=== PATIENT | female | born 1995 | race Caucasian/White ===

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

== ENCOUNTER 2017-01-21 14:51 | Emergency (ER) | payer OTHER ==
[~2017-01-21] VITALS: Ht 157.5 cm; Wt 80.0 kg
[~2017-01-21 14:51] MED LIST changes: +FAMO-96 PO; +IBUP-1542 PO
[2017-01-21 14:55] VITALS: Ht 157.5 cm; Wt 80.0 kg
--- NOTE | 2017-01-21 16:34 | ERD ---
ER Documentation Chief Complaint Date/Time DATE: 01/21/17 TIME: 16:33 Chief Complaint left breast pain HPI This 21-year-old female presents to emergency department with left breast pain and DC around nipple days. Patient denies any blood coming from the nipple says the lesion is on the outside of her areola. Patient denies doing self breast exams, she denies family history of breast cancer Is not currently breast-feeding, she is not . She denies any trauma or injury ROS All systems reviewed and are negative except as per history of present illness. Medications Home Meds Active Scripts Mupirocin* (Bactroban*) 2% -22 Gram Oint...g., 1 APPLIC TOP BID for 7 Days, EA Prov:JAYCEE,LIZBETH 01/21/17 Doxycycline Hyclate* (Doxycycline Hyclate*) 100 Mg Tablet.dr, 100 MG PO BID for 10 Days, TAB Prov:JAYCEE,LIZBETH 01/21/17 Famotidine* (Pepcid*) 20 Mg Tablet, 20 MG PO BID for 4 Days, TAB Prov:REANNA REDMOND PA-C 11/30/16 Ibuprofen* (Motrin*) 600 Mg Tab, 600 MG PO Q6H Y for PAIN AND OR ELEVATED TEMP, #30 TAB Prov:REANNA REDMOND PA-C 11/30/16 Cephalexin* (Keflex*) 500 Mg Capsule, 500 MG PO QID for 5 Days, CAP Prov:PASILABANANDREWAR F 09/19/16 Mupirocin* (Bactroban*) 2% -22 Gram Oint...g., 1 APPLIC TOP BID for 7 Days, EA Prov:GEORGEILATEO SALCEDO F 09/19/16 Naproxen* (Naprosyn*) 500 Mg Tablet, 500 MG PO BID Y for PAIN AND/OR INFLAMMATION, #20 TAB Prov:ERNESTO BURROUGHS PA-C 06/03/16 Tramadol HCl (Tramadol HCl) 50 Mg Tablet, 50 MG PO Q4 Y for PAIN, #20 TAB Prov:ERNESTO BURROUGHS PA-C 06/03/16 Ibuprofen* (Motrin*) 400 Mg Tab, 400 MG PO Q8, #12 TAB Prov:PATY DELEON DO 10/23/15 Ondansetron Hcl* (Zofran* ODT) 4 mg -ODT Tab.disper, 4 MG PO Q6 Y for NAUSEA AND /OR VOMITING, #10 TAB Prov:EMILIE SWANSON I. CHILD CARE SPECIALIST 05/08/15 Meclizine Hcl* (Antivert*) 25 Mg Tablet, 25 MG PO Q6H Y for dizziness , #20 TAB Prov:EMILIE SWANSON I. CHILD CARE SPECIALIST 05/08/15 Reported Medications Aripiprazole* (Abilify*) 2 Mg Tablet, 1-2 MG PO PO Y for AGITATION 07/15/15 Sertraline Hcl* (Sertraline Hcl*) 50 Mg Tablet, 75 MG PO QAM 07/15/15 Hydroxyzine Hcl* (Atarax*) 50 Mg Tab, 50 MG PO QHS Y for INSOMNIA 07/15/15 Allergies Allergies: Coded Allergies: acetaminophen (Verified Allergy, Mild, 11/30/16) SWELLING dextromethorphan HBr (Verified Allergy, Mild, 11/30/16) SWELLING doxylamine (Verified Allergy, Mild, 11/30/16) SWELLING pseudoephedrine HCl (Verified Allergy, Mild, 11/30/16) SWELLING PMhx/Soc History of Surgery: Yes (RT FOOT ) Anesthesia Reaction: No Hx Neurological Disorder: No Hx Respiratory Disorders: No Hx Cardiac Disorders: No Hx Psychiatric Problems: Yes (anxiety/depression) Hx Miscellaneous Medical Probl: No Hx Alcohol Use: No Hx Substance Use: No Hx Tobacco Use: No Physical Exam Vitals Vital Signs Date Time Temp Pulse Resp B/P Pulse Ox O2 Delivery O2 Flow Rate FiO2 01/21/17 20:14 98.0 71 18 125/63 100 Room Air 01/21/17 14:55 98.1 67 18 121/59 99 Stable, triage notes reviewed Physical Exam Const: Well-nourished well-appearing well-hydrated 21-year-old female in no acute distress Head: Eyes: ENT: Neck: Resp: Nontender chest wall. Respirations even and unlabored. Breast exam: Breasts are symmetric, Areola dark, nipples everted. Left areole a presents with a 0.5 cm x 0.6 cm crusty scaly lesion at 1400 no blood or discharge noted. Breast exam negative for nodules or induration. Cardio: Abd: Soft, non tender, non distended. Skin: Back: Ext: Neur: Awake and alert Psych: Normal Mood and Affect Results 24 hrs Current Medications Medications (Trade) Dose Ordered Sig/Juan Route PRN Reason Start Time Stop Time Status Last Admin Dose Admin Doxycycline Hyclate (Vibramycin) 100 mg ONCE ONCE PO 01/21/17 17:00 01/21/17 17:01 Cancel Doxycycline Hyclate (Vibramycin) 100 mg ONCE ONCE PO 01/21/17 17:30 01/21/17 17:31 DC 01/21/17 17:22 Procedures/MDM This pleasant 21-year-old female presents to emergency department for breast pain. Patient reports lesion which is crusty on her left breast. Patient reports that it has been oozing fluid sticking to her bra and painful when she removes her clothing. Patient denies any history of breast trauma, denies any family history of breast cancer. Emergency room course today includes doxycycline started in the emergency room, ultrasound of left breast with radiologist's impression no sonographic evidence of malignancy in the left breast. No sonographic abnormality or findings to suggest source of patient's. BIRADS 1; negative. Follow-up any palpable clinical abnormality as clinically warranted. Otherwise the patient can begin routine annual screening mammograms at age 42. Plan to discharge patient home with a 10 day course of doxycycline, topical Bactroban applied twice daily 7 days. Instructed to follow-up with OB/ RADIAGRAPH OPERATOR a resource list will be provided, return to emergency department for worsening of current symptoms Patient is stable with no new complaints during ER course, clinically there is no current evidence to suggest breast nodule, mastitis, Leung-Vitaliy syndrome, cellulitis. Or any other emergent condition appearing to require further evaluation or hospitalization. I feel the patient is stable for discharge at this time. I have discussed results, examination findings, the treatment plan with the patient and family present prior to discharge. Indications for emergent reevaluation, side effects of medication were also discussed. All questions were answered. Patient verbalizes understanding and agrees with plan of care. Departure Diagnosis: Primary Impression: Lesion of skin of breast Condition: Good Patient Instructions: Breast Exam, Clinical, Breast Health: Normal Breast Changes, Breast Mass, Uncertain Cause Referrals: [facility] REFERRAL LIST Additional Instructions: Thank you for for coming to [facility] for your care today. Please ask your nurse or provider if you have questions about your care today and do not leave until all your questions have been answered. Please use any medications given as directed and follow-up with your doctor (or the doctor you were referred to) in the next 2-3 days. If you do not have a primary care doctor you may follow up at the [facility] [place] (listed below). You may also use motrin and tylenol as needed for fever and/or pain unless instructed otherwise by your provider or nurse. Indications for more urgent follow-up have been discussed, but you may return to the Emergency Department at ANY time for any worrisome or worsening symptoms. If you have abdominal pain, please know that no test or exam you received is perfect and you should follow up within 8 hours for continued pain. If you had any imaging studies today, such as an X-Ray or CT Scan, these studies will be reviewed later by a radiologist. You will be called if there are important findings that were not identified today, so make sure the contact information you provided at registration is correct. If you received any narcotic pain control medicine today, such as Vicodin, Morphine or Dilaudid, your coordination and judgment may be affected for a number of hours. Please do not drive or operate heavy machinery, and you may want someone to assist you at home. If you were given a prescription for narcotic medication, be aware that it is very addictive- use sparingly and only if necessary. LIZBETH CHAMPION Jan 21, 2017 16:34
[2017-01-21] MEDS ORDERED: DOXYCYCLINE 100 MG TAB PO ONE ×2 (17:00→17:30)
--- NOTE | 2017-01-21 19:10 | RADRPT ---
PROCEDURE: Left breast ultrasound. CLINICAL INDICATION: Left breast pain. TECHNIQUE: Ultrasound of the whole left breast was performed with a high frequency linear transduce r. The images were reviewed on a high-resolution PACS monitor. COMPARISON: None available. FINDINGS: No mass, cyst, or focal drainable collection is identified. The axilla is unremarkable. IMPRESSION: 1. No sonographic evidence of malignancy in the left breast. 2. No sonographic abnormality or findings to suggest a source of the patient's symptoms. BIRADS 1: Negative. Follow-up any palpable/clinical abnormality as clinically warranted. Otherwise, the patient can begin routine annual screening mammography at age 42. A reminder letter will be sent to the patient for their next mammogram through our data base. RPTAT: HLBP .Low Cancino MD, MD Date Time Electronically viewed and signed by .Low Cancino MD, MD on 01/21/2017 19:10 .P/
[2017-01-21] MEDS ORDERED: MUPI22OI2 TOP (20:03)
[2017-01-21] MEDS ORDERED: DOXY100T20 PO (20:03)
[2017-01-21 20:14] VITALS: BP 125/63; PULSE 71; RESP 18; TEMP 98
== END 2017-01-21 20:15 | disposition home or self-care (01) ==
LOC: FTE 14:51
DX: L98.9 Disorder of the skin and subcutaneous tissue, unspecified (principal)
CPT/HCPCS: 76642; Z7502; Z7610

== ENCOUNTER 2018-03-28 22:27 | Emergency (ER) | END 2018-03-29 01:51 | disposition home or self-care (01) ==